=== PATIENT | male | born 1985 | race Caucasian/White ===

== ENCOUNTER 2018-04-14 09:29 | Emergency (ER) | payer OTHER ==
[~2018-04-14] VITALS: Ht 177.8 cm; Wt 163.3 kg
[~2018-04-14 09:29] MED LIST: IBUPROFEN 800800 M1 PO; LOVASTATIN 20 M20 MG PO; NAPROSYN500 MG PO; VENLAFAXIN75 MG/1 T2 PO
[2018-04-14] MEDS ORDERED: MOBIC15 MG PO (09:45)
[2018-04-14 10:22] LABS: HEMATOCRIT 39.6 % (42.0-52.0); HEMOGLOBIN 13.8 gm/dL (14.0-18.0); MCH 31.4 pg (26.0-34.0); MCHC 34.9 g/dL (28.0-37.0); MCV 89.8 fL (80.0-100.0); RBC 4.4 mil/uL (4.50-6.00); RDW 13.1 % (10.5-14.5); WBC 14.1 thou/uL (4.0-11.0)
[2018-04-14 10:25] LABS: CALCIUM 9.5 mg/dL (8.5-10.1); CREATININE 0.9 mg/dL (0.7-1.3); POTASSIUM 4.2 mmol/L (3.5-5.1)
[2018-04-14 10:27] LABS: URINE BILIRUBIN NEGATIVE (Negative); URINE BLOOD 1+ (Negative); URINE CLARITY CLEAR; URINE COLOR YELLOW; URINE GLUCOSE-RANDOM* NEGATIVE (Negative); URINE KETONES NEGATIVE (Negative); URINE LEUKOCYTES-REFLEX NEGATIVE (Negative); URINE NITRITE-REFLEX NEGATIVE (Negative); URINE PROTEIN (DIPSTICK) NEGATIVE (Negative); URINE SPECIFIC GRAVITY 1.025 (1.005-1.035); URINE UROBILINOGEN 0.2 E.U./dl (0.2-1.0)
[2018-04-14 10:31] LABS: ALBUMIN 3.5 g/dL (3.4-5.0); TOTAL BILIRUBIN 0.3 mg/dL (<0.1-1.0); TOTAL PROTEIN 7.9 g/dL (6.4-8.2)
[2018-04-14 10:37] LABS: SQUAMOUS 0-3 Few /LPF (0-3)
[2018-04-14 10:38] LABS: BACTERIA-REFLEX 1-9 Few /HPF (None Seen); CASTS None Seen /LPF (None Seen); URINE WBC-REFLEX 0-5 Rare /HPF (0-5)
[2018-04-14 10:39] LABS: CALCIUM OXALATE 4-10 Moderate /LPF (None Seen)
[2018-04-14] MEDS ORDERED: ZOFRAN ODT8 MG PO (11:19)
[2018-04-14] MEDS ORDERED: NORCO 5-325 TA1 EACH PO (11:19)
[2018-04-14 11:33] VITALS: BP 162/74
== END 2018-04-14 11:36 | disposition home or self-care (01) ==
LOC: ER 09:29
PROVIDERS: Emergency Medicine
DX: N20.0 Calculus of kidney (principal); F17.210 Nicotine dependence, cigarettes, uncomplicated; M32.9 Systemic lupus erythematosus, unspecified; J45.909 Unspecified asthma, uncomplicated; I10 Essential (primary) hypertension; Z88.1 Allergy status to other antibiotic agents; Z88.8 Allergy status to other drugs, medicaments and biological substances

== ENCOUNTER 2018-04-18 17:30 | Inpatient (IN) | payer OTHER ==
[~2018-04-18] VITALS: Ht 175.3 cm; Wt 165.6 kg
[~2018-04-18 17:30] MED LIST changes: +MOBIC15 MG PO; +NORCO 5-325 TA1 EACH PO; +ZOFRAN ODT8 MG PO
[2018-04-18 17:31] VITALS: BP 143/88
[2018-04-18 17:58] LABS: URINE BLOOD TRACE (Negative); URINE CLARITY CLEAR; URINE COLOR YELLOW; URINE GLUCOSE-RANDOM* NEGATIVE (Negative); URINE KETONES NEGATIVE (Negative); URINE LEUKOCYTES-REFLEX NEGATIVE (Negative); URINE NITRITE-REFLEX NEGATIVE (Negative); URINE PROTEIN (DIPSTICK) TRACE (Negative); URINE SPECIFIC GRAVITY >= 1.030 (1.005-1.035); URINE UROBILINOGEN 0.2 E.U./dl (0.2-1.0)
[2018-04-18 17:58] LABS: ABSOLUTE NEUTROPHILS 9.3 thou/uL (1.4-8.2); BASOPHILS 0.9 % (0.0-2.0); EOSINOPHILS 2.3 % (0.0-3.0); HEMOGLOBIN 13.6 gm/dL (14.0-18.0); LYMPHOCYTES 21.7 % (24.0-44.0); MCH 31.3 pg (26.0-34.0); MCHC 34.8 g/dL (28.0-37.0); MCV 90.1 fL (80.0-100.0); MONOCYTES 4.1 % (1.0-8.0); PLATELET COUNT 289 thou/uL (150-400); RBC 4.33 mil/uL (4.50-6.00)
[2018-04-18 17:59] LABS: ICTOTEST (BILI CONFIRMATORY) Negative (Negative); URINE BILIRUBIN NEGATIVE (Negative)
[2018-04-18 18:07] LABS: CALCIUM 9.2 mg/dL (8.5-10.1); POTASSIUM 4.2 mmol/L (3.5-5.1)
[2018-04-18 18:13] LABS: TOTAL BILIRUBIN 0.3 mg/dL (<0.1-1.0); TOTAL PROTEIN 8.1 g/dL (6.4-8.2)
[2018-04-18 18:44] LABS: SQUAMOUS 0-3 Few /LPF (0-3)
[2018-04-18 18:45] LABS: BACTERIA 1-9 Few /HPF (None Seen); URINE RBC 0-2 Rare /HPF (0-2); URINE WBC 6-15 Few /HPF (0-5)
[2018-04-18 18:46] LABS: CASTS None Seen /LPF (None Seen)
[2018-04-18 19:00] LABS: CRYSTALS None Seen /LPF (None Seen)
[2018-04-18 19:54] VITALS: BP 151/75
[2018-04-18 20:30] VITALS: BP 142/66
[2018-04-19 03:53] LABS: CREATININE 0.9 mg/dL (0.7-1.3); POTASSIUM 3.9 mmol/L (3.5-5.1)
[2018-04-19 04:23] LABS: HEMATOCRIT 39.8 % (42.0-52.0); HEMOGLOBIN 13.6 gm/dL (14.0-18.0); MCHC 34.2 g/dL (28.0-37.0); MCV 90.7 fL (80.0-100.0); RBC 4.38 mil/uL (4.50-6.00); RDW 13.4 % (10.5-14.5); WBC 8.1 thou/uL (4.0-11.0)
[2018-04-19 07:19] VITALS: BP 160/55
[2018-04-19 15:34] VITALS: BP 149/61
[2018-04-19 19:34] VITALS: BP 168/83
[2018-04-20 08:23] VITALS: BP 179/86
[2018-04-20] MEDS ORDERED: CEFDINIR300 MG PO (13:16)
[2018-04-20] MEDS ORDERED: IBUPROFEN 800800 M1 PO (13:17)
[2018-04-20 13:30] VITALS: BP 179/86
== END 2018-04-20 14:00 | disposition home or self-care (01) | DRG 690 ==
LOC: ER 17:30 → 4E 18:58 → EROBS 18:58 → 4E 20:22
PROVIDERS: Emergency Medicine; Nurse Practitioner Acute Care
DX: N39.0 Urinary tract infection, site not specified (principal); N20.1 Calculus of ureter; J45.909 Unspecified asthma, uncomplicated; F17.210 Nicotine dependence, cigarettes, uncomplicated; I10 Essential (primary) hypertension; Z88.1 Allergy status to other antibiotic agents; Z88.8 Allergy status to other drugs, medicaments and biological substances; Z79.899 Other long term (current) drug therapy
CPT/HCPCS: 10183